=== PATIENT | female | born 1990 | race Caucasian/White ===

== ENCOUNTER → 2017-11-25 15:50 | Outpatient (CLI) | payer OTHER, SELFPAY ==
--- NOTE | 2017-11-25 14:25 | LES_PTH ---
PATIENT: MORRIS NOVOA LOC: [facility] U#:[id number] AGE/SX: 34/F ROOM: RE11/25/[address]: Dr. Edmar Gay MD : 1990 BED: DIS: SPEC #: [id number] RECD: 11/25/17 15:35 STATUS: ADONIS TRICIA #: [id number] FADIA: 11/25/17 14:[address]: Edmar Gay DEPT: SURGICAL PATHOLOGY RECD BY: Alondra Mercado Tissues: Skin of lip, NOS Procedures: Surgery Specimen Level IV HEADER OPERATION: Excision mouth lesion PRE-OP DIAGNOSIS: Mucocele of lower lip TISSUE SUBMITTED: Excision of mouth lesion, lower right lip MICROSCOPIC DIAGNOSIS Lower right lip lesion, biopsy: Consistent with benign mucous cyst, inflamed. AM:neal 11/27/17 MICROSCOPIC DESCRIPTION Slides are reviewed. GROSS DESCRIPTION Received is one container labeled with the patient's name and not further designated. The specimen consists of a piece of akbar mucosal tissue measuring 0.6 x 0.5 cm and up to 0.5 cm in length. The specimen is inked and submitted entirely in one cassette. It will be bisected at the time of embedding. / SJ:neal 11/26/17 TC:5 CPT: 28064
== END ==
PROVIDERS: Visit Provider Otolaryngology
DX: K13.79 Other lesions of oral mucosa (principal)
CPT/HCPCS: 88305